=== PATIENT | male | born 1985 | race Hispanic/Latino ===

== ENCOUNTER 2016-12-08 19:55 | Emergency (ER) | payer SELFPAY ==
[~2016-12-08] VITALS: Ht 170.2 cm; Wt 80.6 kg
[~2016-12-08 19:55] MED LIST: DILAUDID 2MG2 MG/TA1 PO; FLEXERIL PO; KEFLEX500 MG PO; TYLENOL 500MG TAB PO; ULTRAM50 M1 PO
[2016-12-08] MEDS ORDERED: ALBUTERO2 IN (20:51)
[2016-12-08 20:55] VITALS: BP 132/82
== END 2016-12-08 21:14 | disposition home or self-care (01) | DRG 203 ==
LOC: ED 19:55
DX: J40 Bronchitis, not specified as acute or chronic (principal); R05 Cough

== ENCOUNTER 2019-05-15 19:21 | Emergency (ER) | payer SELFPAY ==
[~2019-05-15] VITALS: Ht 170.2 cm; Wt 78.0 kg
[~2019-05-15 19:21] MED LIST changes: +ALBUTERO2 IN
[2019-05-15] MEDS ORDERED: GENTAK0.32 OS (20:15)
[2019-05-15 20:20] VITALS: BP 132/81
== END 2019-05-15 20:20 | disposition home or self-care (01) | DRG 125 ==
LOC: ED 19:21
DX: H00.015 Hordeolum externum left lower eyelid (principal); H02.825 Cysts of left lower eyelid

== ENCOUNTER 2020-01-27 16:54 | Emergency (ER) | payer SELFPAY ==
[~2020-01-27] VITALS: Ht 170.2 cm; Wt 81.0 kg
[~2020-01-27 16:54] MED LIST changes: +GENTAK0.32 OS
[2020-01-27] MEDS ORDERED: AMOX/K CLAV875 M1 PO (17:31)
[2020-01-27 18:05] VITALS: BP 131/85
== END 2020-01-27 18:05 | disposition home or self-care (01) | DRG 605 ==
LOC: ED 16:54
DX: S41.151A Open bite of right upper arm, initial encounter (principal); Y04.1XXA Assault by human bite, initial encounter

== ENCOUNTER 2023-05-08 20:55 | Emergency (ER) | payer SELFPAY ==
[~2023-05-08] VITALS: Ht 172.7 cm; Wt 86.0 kg
[2023-05-08] VITALS (11 sets, daily range): BP systolic 110–139; BP diastolic 68–89
[~2023-05-08 20:55] MED LIST changes: +AMOX/K CLAV875 M1 PO
[2023-05-08 21:38] LABS: BASO% 0.7 % (0-3); EOS% 1.2 % (0-8); HEMATOCRIT 41.3 % (39.0-50.0); HEMOGLOBIN 14.4 g/dl (14.0-18.0); IMMATURE GRANULOCYTES 0.2 % (0.0-5.0); LYMPH% 29.4 % (15-41); MEAN CELL VOLUME 85.5 fL CALC (80.0-100.0); MEAN CORPUSCULAR HGB 29.8 pG CALC (26.0-32.0); MEAN CORPUSCULAR HGB CONC 34.9 g/dL CAL (32.0-36.0); MONO% 7.4 % (2-13); NEUT# 3.61 thou/uL (1.82-7.42); NEUT% 61.1 % (42-76); RED BLOOD COUNT 4.83 mill/uL (4.70-6.10); RED CELL DISTRI WIDTH 12.1 % (11.5-15.5)
[2023-05-08 21:54] LABS: D-DIMER 0.17 mg/L (0.19-0.60); PROTHROMBIN TIME 9.7 SECONDS (9.0-12.5)
[2023-05-10] MEDS ORDERED: OMEPRAZOLE20 MG PO (11:49)
== END 2023-05-08 23:37 | disposition home or self-care (01) | DRG 446 ==
LOC: ED 20:55
PROVIDERS: Family Medicine
DX: K80.20 Calculus of gallbladder without cholecystitis without obstruction (principal); K21.9 Gastro-esophageal reflux disease without esophagitis